=== PATIENT | female | born 1975 | race Caucasian/White ===

== ENCOUNTER 2017-02-20 04:32 | Emergency (ER) | payer MEDICAID ==
[2017-02-20 04:32] VITALS: BMI 26.6
[2017-02-20 04:45] VITALS: BP 117/69; PULSE 82; RESP 17; TEMP 97.7; O2SAT 96
--- NOTE | 2017-02-20 04:59 | ED PDOC ---
Arrival/HPI <Elias Quesada - Last Filed: 02/20/17 06:31> - General Historian: Patient - History of Present Illness Time/Duration: Prior to Arrival Symptom Course: Intermittent Quality: Stabbing <Roderick Georges - Last Filed: 02/20/17 06:35> - General Chief Complaint: Lower Extremity Problem/Injury Time Seen by Provider: 02/20/17 04:32 - History of Present Illness Narrative History of Present Illness (Text): 02/20/17 04:55 41 y/o female with hx rheumatoid arthritis, diabetes, hypothyroidism presenting with complaints of right posterior knee pain. Patient states she has been experiencing intermittent pain for the last 10 days however her pain has significantly worsened tonight. Her pain typically presents at nighttime, often waking her from sleep. She denies any injury to the leg or knee joint. She denies any history of DVT, leg swelling or tenderness. No recent hx of immobility, OCP use or smoking. Pain is worse with flexion of right knee. Patient denies shortness of breath, chest pain, fever, chills. (Roderick Georges) Past Medical History - Provider Review Nursing Documentation Reviewed: Yes - Infectious Disease Hx of Infectious Diseases: None - Tetanus Immunization Tetanus Immunization: Unknown - Cardiac Hx Hypertension: Yes - Pulmonary Hx Respiratory Disorders: Yes Hx Asthma: Yes - Endocrine/Metabolic Hx Diabetes Mellitus Type 1: Yes Hx Hypothyroidism: Yes - Psychiatric Hx Depression: No Hx Emotional Abuse: No Hx Physical Abuse: No Hx Substance Use: No - Surgical History Hx Cholecystectomy: Yes Hx Hysterectomy: Yes Hx Tubal Ligation: Yes (??) - Suicidal Assessment Feels Threatened In Home Enviroment: No <Roderick Georges - Last Filed: 02/20/17 06:35> Family/Social History - Physician Review Nursing Documentation Reviewed: Yes Family/Social History: Unknown Family HX Smoking Status: Never Smoked Hx Alcohol Use: No Hx Substance Use: No Hx Substance Use Treatment: No <Roderick Georges - Last Filed: 02/20/17 06:35> Allergies/Home Meds <Elias Quesada - Last Filed: 02/20/17 06:31> <Roderick Georges - Last Filed: 02/20/17 06:35> Allergies/Adverse Reactions: Allergies No Known Allergies Allergy (Verified 02/05/16 23:00) per patient Home Medications: Home Meds Medication Instructions Recorded Confirmed Glimepiride 2 mg PO BID 09/22/12 02/20/17 Metformin Hydrochloride [Metformin] 500 mg PO DAILY 08/23/13 02/20/17 Levothyroxine Sodium 75 mcg PO DAILY 01/20/15 02/20/17 Amlodipine Besylate/Benazepril 1 cap PO DAILY 02/20/17 02/20/17 [Amlodipine Besylate and Benazepril Hydrochlor] Review of Systems - Physician Review All systems were reviewed & negative as marked: Yes - Review of Systems Respiratory: absent: SOB, Cough Cardiovascular: absent: Chest Pain Musculoskeletal: Other (+ right posterior knee pain ) <Roderick Georges - Last Filed: 02/20/17 06:35> Physical Exam Vital Signs Reviewed: Yes Temperature: Afebrile Blood Pressure: Normal Pulse: Regular Respiratory Rate: Normal Appearance: Positive for: Well-Appearing Pain Distress: Mild Mental Status: Positive for: Alert and Oriented X 3 - Systems Exam Head: Present: Atraumatic, Normocephalic Pupils: Present: PERRL Extroacular Muscles: Present: EOMI Conjunctiva: Present: Normal Neck: Present: Normal Range of Motion Respiratory/Chest: Present: Clear to Auscultation. No: Respiratory Distress, Accessory Muscle Use Cardiovascular: Present: Regular Rate and Rhythm, Normal S1, S2 Abdomen: Present: Normal Bowel Sounds. No: Tenderness, Distention Back: Present: Normal Inspection Upper Extremity: Present: Normal Inspection. No: Cyanosis, Edema Lower Extremity: Present: Normal Inspection, NORMAL PULSES, Neurovascularly Intact. No: Edema, CALF TENDERNESS, Cyanosis, Normal ROM (decreased knee flexion 2/2 pain ), Hernan's Sign, Tenderness, Swelling, Erythema Neurological: Present: GCS=15, CN II-XII Intact, Speech Normal Skin: Present: Warm, Dry, Normal Color. No: Rashes Psychiatric: Present: Alert, Oriented x 3, Normal Insight, Normal Concentration <Roderick Georges - Last Filed: 02/20/17 06:35> Vital Signs Temp Pulse Resp BP Pulse Ox 02/20/17 04:41 97.7 F 82 17 117/69 96 Medical Decision Making <Elias Quesada - Last Filed: 02/20/17 06:31> <Roderick Georges - Last Filed: 02/20/17 06:35> ED Course and Treatment: Impression: Pt seen and evaluated with medical staff coordinator. Pt, whose past medical history includes rheumatoid arthritis, diabetes, and hypothyroidism, presented for intermittent posterior right knee pain for 10 days, worsening tonight. Aware and agree with HPI, clinical findings, plan, and management. Plan: -- XR Right Knee -- US Duplex Lower Extremities -- Reassess and disposition (Elias Quesada) 02/20/17 05:01 41 y/o female with hx rheumatoid arthritis, DM2, hypothyroidism presenting with right posterior knee pain. No injury or trauma reported. Patient with no significant risk factors for DVT. - knee xray - doppler b/l LE - reassess (Roderick Georges) - Lab Interpretations Lab Results: Lab Results 02/20/17 05:02: Urine HCG, Qual Negative - RAD Interpretation Radiology Orders: 02/20/17 04:53 DUPLEX LOWER EXTRM VEIN BILAT [US] Stat 02/20/17 05:02 KNEE RIGHT 2 VIEWS (AP & LAT) [RAD] Stat - PA / [employer] BUSINESS CONSULTANT / Resident Statement / has reviewed & agrees with the documentation as recorded. / has examined the patient and agrees with the treatment plan. <Elias Quesada - Last Filed: 02/20/17 06:31> Disposition/Present on Arrival <Elias Quesada - Last Filed: 02/20/17 06:31> - Present on Arrival Any Indicators Present on Arrival: No History of DVT/PE: No History of Uncontrolled Diabetes: No Urinary Catheter: No History of Decub. Ulcer: No History Surgical Site Infection Following: None - Disposition Have Diagnosis and Disposition been Completed?: Yes Disposition Time: 06:26 Patient Plan: Discharge <Roderick Georges - Last Filed: 02/20/17 06:35> - Disposition Diagnosis: Knee pain, chronic Disposition: HOME/ ROUTINE Patient Problems: Current Active Problems Problem Status Diagnosed Knee pain, chronic Acute Condition: GOOD Discharge Instructions (ExitCare): Knee Pain (ED), Knee Exercises (GEN) Additional Instructions: Please follow up with an Orthopedist for treatment of your knee pain. If pain continues to worsen or changes return to the emergency room. There is no evidence of bone fracture or blood clots to either leg. Referrals: Susy Welsh MD [Primary Care Provider] - Follow up with primary Ed Pulido MD [Staff Provider] - Follow up with primary
--- NOTE | 2017-02-20 11:13 | US ---
HISTORY: Leg pain and swelling. Evaluate for DVT PHYSICIAN(S): Yonatan Acosta MD. TECHNIQUE: Duplex sonography and color-flow Doppler with graded compression were used to evaluate the deep venous systems of both lower extremities. FINDINGS: The visualized deep venous systems of both lower extremities are sonographically normal and compressible. Normal wave forms and augmentation are seen. There is no sonographic evidence for deep venous thrombosis in the visualized segments of both lower extremities. IMPRESSION: No sonographic evidence for deep venous thrombosis in the visualized segments of both lower extremities.
--- NOTE | 2017-02-20 12:21 | RAD ---
PROCEDURE: Right Knee Radiographs. HISTORY: knee pain COMPARISON: None. FINDINGS: BONES: Bone alignment and mineralization are normal. There is no acute fracture or bone destruction. JOINTS: There is moderate tricompartmental degenerative osteoarthrosis with reduced joint spaces, marginal osteophytes and tibial spiking, worse in the medial compartment. JOINT EFFUSION: None. OTHER FINDINGS: None. IMPRESSION: Moderate tricompartmental degenerative osteoarthrosis, worse in the medial compartment.
== END 2017-02-20 07:08 | disposition home or self-care (01) ==
LOC: ED 04:32
DX: M25.561 Pain in right knee (principal); I10 Essential (primary) hypertension; M06.9 Rheumatoid arthritis, unspecified
CPT/HCPCS: 73560; 84703; 93970; 96372; 99283; J1885

== ENCOUNTER 2017-07-14 00:57 | Emergency (ER) | payer MEDICAID ==
[2017-07-14 00:57] VITALS: BMI 26.6
[2017-07-14 01:08] VITALS: BP 125/66; PULSE 89; RESP 18; TEMP 98.3; O2SAT 97
--- NOTE | 2017-07-14 01:21 | ED PDOC ---
Arrival/HPI - General Chief Complaint: Lower Extremity Problem/Injury Time Seen by Provider: 07/14/17 01:05 Historian: Patient - History of Present Illness Narrative History of Present Illness (Text): 07/14/17 01:16 This 41 yo female presents to this ED c/o right ankle pain x 5 hours. Patient stated she twisted her right ankle at a local gym. Patient stated ankle pain was mild, so she told gym staff that she did not need to got to ED. Patient went home, the pain has worsen few hours later. Patient is pointing at medial malleoulus area as the most painful side. Denies posterior ankle pain, knee pain, calf pain, weakness, paresthesias, or hip pain. Denies other complains. Time/Duration: 4-6 hours Symptom Onset: Sudden Symptom Course: Worsening Quality: Aching Context: Other (gym) Past Medical History - Provider Review Nursing Documentation Reviewed: Yes - Infectious Disease Hx of Infectious Diseases: None - Tetanus Immunization Tetanus Immunization: Unknown - Cardiac Hx Hypertension: Yes - Pulmonary Hx Respiratory Disorders: Yes Hx Asthma: Yes - Neurological Hx Neurological Disorder: No - HEENT Hx HEENT Disorder: No - Renal Hx Kidney Stones: No - Endocrine/Metabolic Hx Diabetes Mellitus Type 1: Yes Hx Hypothyroidism: Yes - Hematological/Oncological Hx Blood Disorders: No - Integumentary Hx Dermatological Disorder: No - Musculoskeletal/Rheumatological Hx Musculoskeletal Disorders: No - Gastrointestinal Hx Gastrointestinal Disorders: No - Genitourinary/Gynecological Hx Genitourinary Disorders: No - Psychiatric Hx Psychophysiologic Disorder: No Hx Depression: No Hx Emotional Abuse: No Hx Physical Abuse: No Hx Substance Use: No - Surgical History Hx Cholecystectomy: Yes Hx Hysterectomy: Yes Hx Tubal Ligation: Yes (??) - Suicidal Assessment Feels Threatened In Home Enviroment: No Family/Social History - Physician Review Nursing Documentation Reviewed: Yes Family/Social History: Other (non-contributory) Smoking Status: Never Smoked Hx Alcohol Use: No Hx Substance Use: No Hx Substance Use Treatment: No Allergies/Home Meds Allergies/Adverse Reactions: Allergies No Known Allergies Allergy (Verified 07/14/17 01:01) per patient Home Medications: Home Meds Medication Instructions Recorded Confirmed Glimepiride 2 mg PO BID 09/22/12 02/20/17 Metformin Hydrochloride [Metformin] 500 mg PO DAILY 08/23/13 02/20/17 Levothyroxine Sodium 75 mcg PO DAILY 01/20/15 02/20/17 Amlodipine Besylate/Benazepril 1 cap PO DAILY 02/20/17 02/20/17 [Amlodipine Besylate and Benazepril Hydrochlor] Review of Systems - Review of Systems Constitutional: Normal. absent: Fatigue, Weight Change, Fevers Eyes: Normal ENT: Normal Respiratory: Normal. absent: SOB, Cough Cardiovascular: Normal. absent: Chest Pain, Other Gastrointestinal: Normal. absent: Abdominal Pain, Nausea, Vomiting Genitourinary Female: Normal Musculoskeletal: Other (see hpi) Skin: Normal Neurological: Normal. absent: Headache, Dizziness, Focal Weakness Endocrine: Normal Hemo/Lymphatic: Normal Psychiatric: Normal Physical Exam Vital Signs Temp Pulse Resp BP Pulse Ox 07/14/17 01:02 98.3 F 89 18 125/66 97 Temperature: Afebrile Blood Pressure: Normal Pulse: Regular Respiratory Rate: Normal Appearance: Positive for: Well-Appearing, Non-Toxic, Comfortable Pain Distress: None Mental Status: Positive for: Alert and Oriented X 3 - Systems Exam Head: Present: Atraumatic, Normocephalic Pupils: Present: PERRL Extroacular Muscles: Present: EOMI Conjunctiva: Present: Normal Mouth: Present: Moist Mucous Membranes Upper Extremity: Present: Normal Inspection, Normal ROM Lower Extremity: Present: NORMAL PULSES, Tenderness, Swelling, Neurovascularly Intact, Capillary Refill < 2 s, Other ((+) mild swelling and tender on right lateral malleoulus area. Alvarez test was negative. No calf tenderness. No posterior ankle tenderness). No: Edema, CALF TENDERNESS, Normal ROM, Hernan's Sign, Erythema, Deformity, Temperature Abnormalties Neurological: Present: GCS=15, CN II-XII Intact, Speech Normal, Motor Func Grossly Intact, Normal Sensory Function, Normal Cerebellar Funct, Memory Normal Skin: Present: Warm, Dry, Normal Color. No: Rashes Psychiatric: Present: Alert, Oriented x 3 Medical Decision Making ED Course and Treatment: 07/14/17 02:06 Re-evaluation. Patient feels better. Discussed results and plan with patient who expresses understanding. All questions answered and there is agreement with the plan to discharge home with instructions. Patient stable for discharge. Return if symptoms persist or worsen Patient was recommended to keep ankle elevated, ice, jarvis bandage, air cast, crutches for at least 5 days. To f/u fastener technologist if pain persist. To remove jarvis bandage and air cast at bedtime. Return to emergency if symptoms worsen. Re-evaluation Time: 02:06 Reassessment Condition: Re-examined, Improved - RAD Interpretation Narrative RAD Interpretations (Text): 07/14/17 02:06 Ankle x-rays: No fx Tib Fib x-rays: no fx Radiology Orders: 07/14/17 01:15 ANKLE RIGHT 3 VIEWS ROUTINE [RAD] Stat TIBIA FIBULA RIGHT [RAD] Stat - Medication Orders Current Medication Orders: Discontinued Medications Acetaminophen (Tylenol 325mg Tab) 650 mg PO STAT STA Stop: 07/14/17 01:17 Last Admin: 07/14/17 01:31 Dose: 650 mg Acetaminophen (Tylenol 325mg Tab) Confirm Administered Dose 650 mg .ROUTE .STK- MED ONE Stop: 07/14/17 01:28 Disposition/Present on Arrival - Present on Arrival Any Indicators Present on Arrival: No History of DVT/PE: No History of Uncontrolled Diabetes: No Urinary Catheter: No History of Decub. Ulcer: No History Surgical Site Infection Following: None - Disposition Have Diagnosis and Disposition been Completed?: Yes Diagnosis: Ankle pain Disposition: HOME/ ROUTINE Disposition Time: 02:10 Patient Plan: Discharge Condition: GOOD Discharge Instructions (ExitCare): Ankle Sprain (ED), Crutch Instructions (ED) Additional Instructions: Call private doctor for follow up visit in 1-2 days. Keep ankle elevated, ice , rest, crutches, air cast. Remove air cast at bedtime. Return to emergency if symptoms worsen. Call fastener technologist if pain persist or worsen Prescriptions: Acetaminophen with Codeine [Tylenol with Codeine #3 Tablet] 1 each PO Q6H PRN # 10 tablet PRN Reason: Pain, Severe (8-10) Referrals: Susy Welsh MD [Primary Care Provider] - Follow up with primary Mikaela Corado DPM [Staff Provider] - Follow up with primary Forms: [employer] ([place]ux[place]ish), WORK NOTE
--- NOTE | 2017-07-14 07:24 | RAD ---
PROCEDURE: Right Ankle Radiographs. HISTORY: pain s/p trauma COMPARISON: None FINDINGS: BONES: Normal. No fracture. JOINTS: Normal. No osteoarthritis. Ankle mortise maintained. Talar dome intact SOFT TISSUES: Normal. OTHER FINDINGS: None. IMPRESSION: Normal right ankle radiographs.
--- NOTE | 2017-07-14 07:24 | RAD ---
PROCEDURE: Radiographs of the right tibia and fibula. HISTORY: pain COMPARISON: None available. TECHNIQUE: Frontal and lateral views obtained. FINDINGS: BONES: No fracture or destructive lesion. JOINT SPACES: Unremarkable. OTHER FINDINGS: None. IMPRESSION: Unremarkable radiographs of the right tibia and fibula.
== END 2017-07-14 02:35 | disposition home or self-care (01) ==
LOC: ED 00:57
DX: M25.571 Pain in right ankle and joints of right foot (principal)

== ENCOUNTER 2017-12-24 21:11 | Emergency (ER) | payer MEDICAID ==
[2017-12-24 21:12] VITALS: BMI 26.6
[2017-12-24 21:38] VITALS: TEMP 98.1; O2SAT 99
--- NOTE | 2017-12-24 21:56 | ED PDOC ---
Arrival/HPI - General Chief Complaint: Finger,Hand,&Wrist Time Seen by Provider: 12/24/17 21:40 Historian: Patient - History of Present Illness Narrative History of Present Illness (Text): 12/24/17 21:40 42 y/o female, pmh including htn/dm/hypothyroidism/rheumatoid arthiritis, nkda, c/o Lt. wrist pain started yesterday with no fall or trauma. Aching pain, painful to move, no pain medication taken at home, feels like this is the flared up of her rheumatoid arthiritis, no numbness or tingling, no palpitation , no rash, no night sweat, no other medical or psychological complaints. Past Medical History - Provider Review Nursing Documentation Reviewed: Yes - Infectious Disease Hx of Infectious Diseases: None - Tetanus Immunization Tetanus Immunization: Unknown - Cardiac Hx Hypertension: Yes - Pulmonary Hx Respiratory Disorders: Yes Hx Asthma: Yes - Neurological Hx Neurological Disorder: No - HEENT Hx HEENT Disorder: No - Renal Hx Kidney Stones: No - Endocrine/Metabolic Hx Diabetes Mellitus Type 1: Yes Hx Hypothyroidism: Yes - Hematological/Oncological Hx Blood Disorders: No - Integumentary Hx Dermatological Disorder: No - Musculoskeletal/Rheumatological Hx Musculoskeletal Disorders: No - Gastrointestinal Hx Gastrointestinal Disorders: No - Genitourinary/Gynecological Hx Genitourinary Disorders: No - Psychiatric Hx Psychophysiologic Disorder: No Hx Depression: No Hx Emotional Abuse: No Hx Physical Abuse: No Hx Substance Use: No - Surgical History Hx Cholecystectomy: Yes Hx Hysterectomy: Yes Hx Tubal Ligation: Yes (??) - Suicidal Assessment Feels Threatened In Home Enviroment: No Family/Social History - Physician Review Nursing Documentation Reviewed: Yes Family/Social History: Unknown Family HX Smoking Status: Never Smoked Hx Alcohol Use: No Hx Substance Use: No Hx Substance Use Treatment: No Allergies/Home Meds Allergies/Adverse Reactions: Allergies No Known Allergies Allergy (Verified 07/14/17 01:01) per patient Home Medications: Home Meds Medication Instructions Recorded Confirmed Glimepiride 2 mg PO BID 09/22/12 02/20/17 Metformin Hydrochloride [Metformin] 500 mg PO DAILY 08/23/13 02/20/17 Levothyroxine Sodium 75 mcg PO DAILY 01/20/15 02/20/17 Amlodipine Besylate/Benazepril 1 cap PO DAILY 02/20/17 02/20/17 [Amlodipine Besylate and Benazepril Hydrochlor] Review of Systems - Review of Systems Constitutional: absent: Fatigue, Fevers Eyes: absent: Vision Changes ENT: absent: Hearing Changes Respiratory: absent: SOB, Cough Cardiovascular: absent: Chest Pain, Syncope Gastrointestinal: absent: Abdominal Pain, Nausea, Vomiting Musculoskeletal: Arthralgias, Joint Swelling. absent: Back Pain, Neck Pain, Myalgias Skin: absent: Rash, Pruritis Psychiatric: absent: Anxiety, Depression Physical Exam Vital Signs Reviewed: Yes Vital Signs Temp Pulse Resp BP Pulse Ox 12/24/17 23:12 78 16 128/78 99 12/24/17 21:34 98.1 F 83 15 132/85 99 Temperature: Afebrile Blood Pressure: Normal Pulse: Regular Respiratory Rate: Normal Appearance: Positive for: Well-Appearing, Non-Toxic Pain Distress: Moderate Mental Status: Positive for: Alert and Oriented X 3 - Systems Exam Head: Present: Atraumatic, Normocephalic Pupils: Present: PERRL Extroacular Muscles: Present: EOMI Conjunctiva: Present: Normal Mouth: Present: Moist Mucous Membranes Neck: Present: Normal Range of Motion Respiratory/Chest: Present: Clear to Auscultation, Good Air Exchange. No: Respiratory Distress, Accessory Muscle Use Cardiovascular: Present: Regular Rate and Rhythm, Normal S1, S2. No: Murmurs Abdomen: Present: Normal Bowel Sounds. No: Tenderness, Distention, Peritoneal Signs Back: Present: Normal Inspection Upper Extremity: Present: Normal Inspection, Normal ROM, Neurovascularly Intact , Capillary Refill < 2s, Norm 2-Pt Discrimination, Other (Lt. wrist: +ttp on lt. wrist, no scaphoid tenderness, no erythematous, no cellulitis or streaking, no ulcers, FROM without limitation, sensation intact, motor 5/5, +radial pulse, capillary refill< 2 seconds, neurovascular intact. ). No: Cyanosis, Edema, Erythema, Deformity Lower Extremity: Present: Normal Inspection. No: Edema Neurological: Present: GCS=15, CN II-XII Intact, Speech Normal Skin: Present: Warm, Dry, Normal Color. No: Rashes Psychiatric: Present: Alert, Oriented x 3, Normal Insight, Normal Concentration Medical Decision Making ED Course and Treatment: 12/24/17 22:09 -labs/uric acid -Lt. wrist xray -LUE venuous doppler -IV toradol/decadron 12/24/17 23:38 -Urine hcg negative -LUE venuous doppler: as per preliminary report, no acute DVT -Lt. wrist xray: no acute fracture or dislocation -Labs are non-significant -Pt. feels much better, will discharge home. -Discharge home with indomethacin, jarvis wrap, follow up with your own pmd and orthopedic within 2 days, return to the ER for any new or worsening signs or symptoms. - Lab Interpretations Lab Results: 12/24/17 22:25 12/24/17 22:25 Lab Results 12/24/17 22:25: Sodium 135, Potassium 3.6, Chloride 100, Carbon Dioxide 24, Anion Gap 15, BUN 21, Creatinine 0.6 L, Est GFR ( Amer) > 60, Est GFR ( Non-Af Amer) > 60, Random Glucose 268 H, Uric Acid 3.3, Calcium 8.9, Total Bilirubin 0.2, AST 16, ALT 29, Alkaline Phosphatase 52, Total Protein 7.1, Albumin 3.9, Globulin 3.2, Albumin/Globulin Ratio 1.2 12/24/17 22:25: WBC 6.1, RBC 4.56, Hgb 10.4 L, Hct 32.6 L, MCV 71.5 L, MCH 22.8 L, MCHC 31.9, RDW 14.0, Plt Count 280, MPV 10.0, Gran % 41.8 L, Lymph % (Auto) 49.6 H, [place] % (Auto) 6.4 H, Eos % (Auto) 2.0, Baso % (Auto) 0.2, Gran # 2.56, Lymph # 3.0, [place] # 0.4, Eos # 0.1, Baso # 0.01 - RAD Interpretation Radiology Orders: 12/24/17 22:00 WRIST, LEFT 3 VIEWS [RAD] Stat DUPLEX UPPER EXTRM VEIN LEFT [US] Stat LUE venuous doppler: as per preliminary report, no acute DVT Lt. wrist xray: no acute fracture or dislocation Call Center Associate: Radiologist - Medication Orders Current Medication Orders: Discontinued Medications Dexamethasone (Decadron Inj) 8 mg IVP STAT STA Stop: 12/24/17 22:01 Last Admin: 12/24/17 22:29 Dose: 8 mg IVP Administration Document 12/24/17 22:29 JO (Rec: 12/24/17 22:29 [id number] Charges for Administration # of IVP Administrations 1 Ketorolac Tromethamine (Toradol) 30 mg IVP STAT STA Stop: 12/24/17 22:01 Last Admin: 12/24/17 22:29 Dose: 30 mg MAR Pain Assessment Document 12/24/17 22:29 JO (Rec: 12/24/17 22:29 [id number] Pain Reassessment Is this a pain reassessment? No Sleep Is patient sleeping during reassessment? No Presence of Pain Presence of Pain Yes Pain Scale Used Pain Scale Used Numeric Location Left, Right or Bilateral Left Pain Location Body Site Wrist IVP Administration Document 12/24/17 22:29 JO (Rec: 12/24/17 22:29 [place] [id number]) Charges for Administration # of IVP Administrations 1 - PA / HOG HANDLER / Resident Statement MD/DO has reviewed & agrees with the documentation as recorded. Disposition/Present on Arrival - Present on Arrival Any Indicators Present on Arrival: No History of DVT/PE: No History of Uncontrolled Diabetes: No Urinary Catheter: No History of Decub. Ulcer: No History Surgical Site Infection Following: None - Disposition Have Diagnosis and Disposition been Completed?: Yes Diagnosis: Arthritis, Tendinitis Disposition: HOME/ ROUTINE Disposition Time: 22:09 Patient Plan: Discharge Condition: IMPROVED Additional Instructions: -Discharge home with indomethacin, jarvis wrap, follow up with your own pmd and orthopedic within 2 days, return to the ER for any new or worsening signs or symptoms. Prescriptions: Indomethacin [Indocin] 50 mg PO TID PRN #30 cap PRN Reason: Other Referrals: PCP,NO [Primary Care Provider] - Follow up with primary Ed Pulido MD [Staff Provider] - Follow up with primary [facility] [Outside] - Follow up with primary Forms: WORK NOTE
[2017-12-24] MEDS ORDERED: Dexamethasone 4 mg/1 ml IVP STA (22:00)
[2017-12-24 22:40] LABS: BASO # 0.01 K/mm3 (0.0-2.0); BASO % 0.2 % (0.0-3.0); EOS # 0.1 (0.0-0.7); GRAN # 2.56 (1.4-6.5); GRAN % 41.8 % (50.0-68.0); HEMOGLOBIN 10.4 g/dL (12.0-16.0); LYMPH % 49.6 % (22.0-35.0); MEAN CELL VOLUME 71.5 fl (80.0-105.0); MEAN CORPUSCULAR HEMOGLOBIN 22.8 pg (25.0-35.0); MEAN CORPUSCULAR HGB CONC 31.9 g/dl (31.0-37.0); MONO # 0.4 (0.1-0.6); MONO % 6.4 % (1.0-6.0); RBC 4.56 10^6/uL (3.5-6.1); WHITE BLOOD COUNT 6.1 10^3/ul (4.5-11.0)
[2017-12-24 22:46] LABS: ALB/GLOB RATIO 1.2 (1.1-1.8); ALBUMIN 3.9 g/dL (3.0-4.8); ALT/SGPT 29 U/L (7-56); AST/SGOT 16 U/L (14-36); BLOOD UREA NITROGEN 21 mg/dL (7-21); CALCIUM 8.9 mg/dL (8.4-10.5); GFR AFRICAN-AMERICAN > 60; GFR NON-AFRICAN AMERICAN > 60; URIC ACID 3.3 mg/dL (2.5-6.2)
[2017-12-25 03:30] VITALS: BP 128/78; PULSE 78; RESP 16
--- NOTE | 2017-12-25 10:28 | RAD ---
PROCEDURE: Left Wrist Radiographs. HISTORY: Left wrist pain x 2 days COMPARISON: None. FINDINGS: BONES: Bone alignment and mineralization are normal. There is no acute displaced fracture or bone destruction. JOINTS: The proximal and distal carpal rows are maintained. No dislocation. SOFT TISSUES: Normal. OTHER FINDINGS: None. IMPRESSION: No acute fracture or dislocation.
--- NOTE | 2017-12-26 08:49 | US ---
PROCEDURE: Left upper extremity venous ultrasound HISTORY: Arm pain and swelling. Evaluate for deep venous thrombosis. PHYSICIAN(S): Yonatan Acosta MD. FINDINGS: The visualized leftinternal jugular vein is sonographically normal and compressible. No evidence of obstruction or thrombus is seen. The visualized segments of the left subclavian vein are patent with normal waveforms. No sonographic evidence of obstruction or thrombosis is seen. The visualized deep venous system of the proximal leftupper extremity is sonographically normal and compressible. IMPRESSION: 1. No sonographic evidence for deep venous thrombosis in the visualized segments of the left upper extremity.
== END 2017-12-24 23:50 | disposition home or self-care (01) ==
LOC: ED 21:11
DX: M77.8 Other enthesopathies, not elsewhere classified (principal); M13.832 Other specified arthritis, left wrist; I10 Essential (primary) hypertension
CPT/HCPCS: 73110; 80053; 84550; 85025; 93971; 96374; 96375; 99284; J1100; J1885

== ENCOUNTER 2018-03-15 13:28 | Emergency (ER) | payer MEDICAID ==
[2018-03-15 13:28] VITALS: BMI 26.6
[2018-03-15 13:55] VITALS: TEMP 98.6
--- NOTE | 2018-03-15 14:46 | ED PDOC ---
Arrival/HPI - General Chief Complaint: Abnormal Skin Integrity Time Seen by Provider: 03/15/18 14:29 Historian: Patient - History of Present Illness Narrative History of Present Illness (Text): 03/15/18 14:43 This 42 yo female with pmh Diabetes, hypothyroidism, Hypertension, presents to this emergency department complaining of left flank pain since last night. Patient stated pain is sharp, and intermittent, radiating to her left groin. Patient denies urinary symptoms, fever, vaginal discharge, n/v/d, dizziness, or abnormal gait. Patient noted [place] [facility] [place]. Patient stated bruises on her right arm after IV insertion. Denies pus or cellulitis. Time/Duration: Other (see hpi) Quality: Other (sharp) Context: Home Past Medical History - Provider Review Nursing Documentation Reviewed: Yes - Infectious Disease Hx of Infectious Diseases: None - Tetanus Immunization Tetanus Immunization: Unknown - Reproductive Menopause: No - Cardiac Hx Hypertension: Yes - Pulmonary Hx Respiratory Disorders: Yes Hx Asthma: Yes - Neurological Hx Neurological Disorder: No - HEENT Hx HEENT Disorder: No - Renal Hx Kidney Stones: No - Endocrine/Metabolic Hx Diabetes Mellitus Type 1: Yes Hx Hypothyroidism: Yes - Hematological/Oncological Hx Blood Disorders: No - Integumentary Hx Dermatological Disorder: No - Musculoskeletal/Rheumatological Hx Musculoskeletal Disorders: No - Gastrointestinal Hx Gastrointestinal Disorders: No - Genitourinary/Gynecological Hx Genitourinary Disorders: No - Psychiatric Hx Psychophysiologic Disorder: No Hx Depression: No Hx Emotional Abuse: No Hx Physical Abuse: No Hx Substance Use: No - Surgical History Hx Cholecystectomy: Yes Hx Hysterectomy: Yes Hx Tubal Ligation: Yes (??) - Suicidal Assessment Feels Threatened In Home Enviroment: No Family/Social History - Physician Review Nursing Documentation Reviewed: Yes Family/Social History: Other (noncontributory) Smoking Status: Never Smoked Hx Alcohol Use: No Hx Substance Use: No Hx Substance Use Treatment: No Allergies/Home Meds Allergies/Adverse Reactions: Allergies No Known Allergies Allergy (Verified 07/14/17 01:01) per patient Home Medications: Home Meds Medication Instructions Recorded Confirmed Glimepiride 2 mg PO BID 09/22/12 02/20/17 Metformin Hydrochloride [Metformin] 500 mg PO DAILY 08/23/13 02/20/17 Levothyroxine Sodium 75 mcg PO DAILY 01/20/15 02/20/17 Amlodipine Besylate/Benazepril 1 cap PO DAILY 02/20/17 02/20/17 [Amlodipine Besylate and Benazepril Hydrochlor] Review of Systems - Review of Systems Constitutional: Normal. absent: Fatigue, Weight Change, Fevers Eyes: Normal ENT: Normal Respiratory: Normal. absent: SOB, Cough Cardiovascular: Normal. absent: Chest Pain, Palpitations Gastrointestinal: Other (left flank pain). absent: Nausea, Vomiting Genitourinary Female: Normal. absent: Dysuria, Frequency, Hematuria, Vaginal Bleeding, Vaginal Discharge Musculoskeletal: Normal. absent: Back Pain Skin: Other (right arm brusing) Neurological: Normal. absent: Headache, Dizziness, Focal Weakness, Gait Changes , Speech Changes, Facial Droop, Disequilibrium, Seizure Endocrine: Normal Hemo/Lymphatic: Normal Psychiatric: Normal Physical Exam Vital Signs Temp Pulse Resp BP Pulse Ox 03/15/18 15:26 89 18 121/75 98 03/15/18 13:50 98.6 F 94 H 20 119/80 99 Temperature: Afebrile Blood Pressure: Normal Pulse: Regular Respiratory Rate: Normal Appearance: Positive for: Well-Appearing, Non-Toxic, Comfortable Pain Distress: None Mental Status: Positive for: Alert and Oriented X 3 - Systems Exam Head: Present: Atraumatic, Normocephalic Pupils: Present: PERRL Extroacular Muscles: Present: EOMI Conjunctiva: Present: Normal Mouth: Present: Moist Mucous Membranes Neck: Present: Normal Range of Motion Respiratory/Chest: Present: Clear to Auscultation, Good Air Exchange. No: Respiratory Distress, Accessory Muscle Use Cardiovascular: Present: Regular Rate and Rhythm, Normal S1, S2. No: Murmurs Abdomen: No: Tenderness, Distention, Peritoneal Signs, Rebound, Guarding Back: Present: Normal Inspection. No: CVA Tenderness, Midline Tenderness, Paraspinal Tenderness, Pain with Leg Raise Upper Extremity: Present: Normal ROM, NORMAL PULSES, Neurovascularly Intact, Capillary Refill < 2s, Other ((+) 4 cm healing ecchymosis on right antecubital area from IV insertion. No cellulitis or abscess. No streaking erythema. No compartment syndrome.). No: Cyanosis, Edema, Tenderness, Swelling, Erythema Lower Extremity: Present: Normal Inspection, Normal ROM. No: Edema Neurological: Present: GCS=15, CN II-XII Intact, Speech Normal, Motor Func Grossly Intact, Normal Sensory Function, Normal Cerebellar Funct, Gait Normal Skin: Present: Warm, Dry, Normal Color. No: Rashes Psychiatric: Present: Alert, Oriented x 3, Normal Insight, Normal Concentration Medical Decision Making ED Course and Treatment: 03/15/18 14:47 -labs -ct abdom./pelvis -ua/hcg 03/15/18 15:05 Patient refused blood test. She stated she had [place] [facility] [place]. 03/15/18 16:50 Re-evaluation. Patient feels better. Discussed results and plan with patient who expresses understanding. All questions answered and there is agreement with the plan to discharge home with instructions. Patient stable for discharge. Return if symptoms persist or worsen. Re-evaluation Time: 16:50 Reassessment Condition: Re-examined, Improved - Lab Interpretations Lab Results: Lab Results 03/15/18 15:18: Urine Color Yellow, Urine Appearance Clear, Urine pH 6.0, Ur Specific Hosmer 1.025, Urine Protein Negative, Urine Glucose (UA) 500 H, Urine Ketones Negative, Urine Blood Negative, Urine Nitrate Negative, Urine Bilirubin Negative, Urine Urobilinogen 0.2, Ur Leukocyte Esterase Trace H, Urine RBC 0 - 2 , Urine WBC 0 - 2, Ur Epithelial Cells 4 - 5, Urine Bacteria Few, Urine HCG, Qual Negative I have reviewed the lab results: Yes Interpretation: No clinic. lab abnormalty - RAD Interpretation Narrative RAD Interpretations (Text): 03/15/18 16:50 PROCEDURE: CT Abdomen and Pelvis without intravenous contrast HISTORY: left flank pain COMPARISON: 01/03/2016 CT abdomen and pelvis TECHNIQUE: Unenhanced study. Neither oral nor intravenous contrast administered. Total exam DLP = 816.28 mGy-cm. This CT exam was performed using one or more of the following dose reduction techniques: Automated exposure control, adjustment of the mA and/or kV according to patient size, and/or use of iterative reconstruction technique. FINDINGS: LOWER THORAX: Peripheral pleural-based 5 mm pulmonary nodule right middle lobe. Stable finding compared to prior studies. Peripheral 6 mm pulmonary nodule lateral segment left lower lobe stable findings LIVER: Unremarkable. No gross lesion or ductal dilatation. GALLBLADDER AND BILE DUCTS: Status post cholecystectomy. No abnormality is seen in the gallbladder fossa. PANCREAS: Unremarkable. No gross lesion or ductal dilatation. SPLEEN: Unremarkable. ADRENALS: Unremarkable. No mass. KIDNEYS AND URETERS: Unremarkable. No hydronephrosis. No solid mass. VASCULATURE: Unremarkable. No aortic aneurysm. BOWEL: Constipation without fecal impaction or obstruction. APPENDIX: No abnormalities to suggest acute appendicitis. No right lower quadrant inflammatory processes identified. PERITONEUM: Unremarkable. No free fluid. No free air. LYMPH NODES: Unremarkable. No enlarged lymph nodes. BLADDER: Unremarkable. REPRODUCTIVE: Unremarkable. BONES: No acute fracture. OTHER FINDINGS: None. IMPRESSION: No significant or acute findings to account for/ related to the clinical presentation. Additional benign and/or incidental findings described above. No significant interval change compared to the prior examination(s). Radiology Orders: 03/15/18 14:43 ABD & PELVIS W/O PO OR IV CONT [CT] Stat Disposition/Present on Arrival - Present on Arrival Any Indicators Present on Arrival: No History of DVT/PE: No History of Uncontrolled Diabetes: No Urinary Catheter: No History of Decub. Ulcer: No History Surgical Site Infection Following: None - Disposition Have Diagnosis and Disposition been Completed?: Yes Diagnosis: Constipation, Nonspecific abdominal pain, Lung nodule Disposition: HOME/ ROUTINE Disposition Time: 16:53 Patient Plan: Discharge Condition: GOOD Additional Instructions: Call private doctor for follow up visit in 1-2 days. Take medication as instructed. Make sure to review urine culture in 2-3 days with your doctor. Take miralx daily to prevent constipation. Return to emergency if symptoms worsen. Prescriptions: Cephalexin [Keflex] 500 mg PO BID #14 capsule Polyethylene Glycol 3350 [Miralax] 17 gm PO DAILY #1 packet Referrals: Susy Welsh MD [Primary Care Provider] - Follow up with primary Forms: [employer] (Uzbek), WORK NOTE
[2018-03-15 15:32] LABS: URINE BILIRUBIN NEGATIVE (NEGATIVE); URINE BLOOD NEGATIVE (NEGATIVE); URINE GLUCOSE (UA) 500 mg/dL (NEGATIVE); URINE LEUKOCYTE ESTERASE TRACE Leu/uL (NEGATIVE); URINE PROTEIN NEGATIVE mg/dL (<30 mg/dL); URINE UROBILINOGEN 0.2 E.U./dL (<1 E.U./dL)
[2018-03-15 15:33] LABS: URINE APPEARANCE CLEAR (CLEAR); URINE COLOR YELLOW (YELLOW)
[2018-03-15 15:35] LABS: HCG,QUALITATIVE URINE NEGATIVE (NEGATIVE)
[2018-03-15 15:39] LABS: URINE BACTERIA FEW (NEG); URINE RBC 0 - 2 /hpf (0-2); URINE WBC 0 - 2 /hpf (0-6)
--- NOTE | 2018-03-15 16:32 | CT ---
PROCEDURE: CT Abdomen and Pelvis without intravenous contrast HISTORY: left flank pain COMPARISON: 01/03/2016 CT abdomen and pelvis TECHNIQUE: Unenhanced study. Neither oral nor intravenous contrast administered. Total exam DLP = 816.28 mGy-cm. This CT exam was performed using one or more of the following dose reduction techniques: Automated exposure control, adjustment of the mA and/or kV according to patient size, and/or use of iterative reconstruction technique. FINDINGS: LOWER THORAX: Peripheral pleural-based 5 mm pulmonary nodule right middle lobe. Stable finding compared to prior studies. Peripheral 6 mm pulmonary nodule lateral segment left lower lobe stable findings LIVER: Unremarkable. No gross lesion or ductal dilatation. GALLBLADDER AND BILE DUCTS: Status post cholecystectomy. No abnormality is seen in the gallbladder fossa. PANCREAS: Unremarkable. No gross lesion or ductal dilatation. SPLEEN: Unremarkable. ADRENALS: Unremarkable. No mass. KIDNEYS AND URETERS: Unremarkable. No hydronephrosis. No solid mass. VASCULATURE: Unremarkable. No aortic aneurysm. BOWEL: Constipation without fecal impaction or obstruction. APPENDIX: No abnormalities to suggest acute appendicitis. No right lower quadrant inflammatory processes identified. PERITONEUM: Unremarkable. No free fluid. No free air. LYMPH NODES: Unremarkable. No enlarged lymph nodes. BLADDER: Unremarkable. REPRODUCTIVE: Unremarkable. BONES: No acute fracture. OTHER FINDINGS: None. IMPRESSION: No significant or acute findings to account for/ related to the clinical presentation. Additional benign and/or incidental findings described above. No significant interval change compared to the prior examination(s).
[2018-03-15 17:15] VITALS: BP 124/80; PULSE 78; RESP 17; O2SAT 99
== END 2018-03-15 17:13 | disposition home or self-care (01) ==
LOC: ED 13:28
DX: K59.00 Constipation, unspecified (principal); R91.1 Solitary pulmonary nodule; R10.9 Unspecified abdominal pain; E11.9 Type 2 diabetes mellitus without complications; I10 Essential (primary) hypertension; E03.9 Hypothyroidism, unspecified

== ENCOUNTER 2018-04-18 14:59 | Emergency (ER) | payer MEDICAID ==
[2018-04-18 15:15] VITALS: BMI 30.9
[2018-04-18 15:21] VITALS: RESP 18
[2018-04-18] MEDS ORDERED: Sodium Chloride 0.9% 500 ML IV STA (15:53)
--- NOTE | 2018-04-18 16:11 | ED PDOC ---
Arrival/HPI - General Chief Complaint: High Blood Sugar Time Seen by Provider: 04/18/18 15:49 Historian: Patient - History of Present Illness Narrative History of Present Illness (Text): 04/18/18 1555 pt p/w + sudden onset of right arm cramping/severe pain/lower leg numbness/ tingling, and + sob/dizziness after giving herself insulin injection ~ 45min prior to Emergency department arrival; pt states pain is severe, pt states no fever/chills/sweats, no cp, + intermittent sob over the last few days, no palpitations, no abd pain, no n/v, no fall/trauma/sick contact, no travel administrator denied incontinence pt states her sugar level has been unbalanced/high over the last few weeks prompting patient to visit [facility] [place] on multiple occasions pt denied slurr speech, no chacon, no vision changes, no arm/leg weakness pt is here for further eval pt's without other complaints pt denied severe anxiety, pt denied SI/HI, pt denied hallucinations PCP: Dr Gunter pt is right hand dominate Past medical history: cardiomeagly, thyroid disorder, asthma/diabetes, mood disorder Time/Duration: Prior to Arrival Symptom Onset: Sudden Symptom Course: Unchanged Quality: Tightness Severity Level: Severe Activities at Onset: Rest Context: Home Past Medical History - Provider Review Nursing Documentation Reviewed: Yes - Travel History Have you recently traveled outside [place] w/in the past 3 mons?: No - Past History Past History: No Previous - Infectious Disease Hx of Infectious Diseases: None - Tetanus Immunization Tetanus Immunization: Unknown - Reproductive Menopause: No Currently : Unknown - Cardiac Hx Hypertension: Yes - Pulmonary Hx Respiratory Disorders: Yes Hx Asthma: Yes - Neurological Hx Neurological Disorder: No - HEENT Hx HEENT Disorder: No - Renal Hx Kidney Stones: No - Endocrine/Metabolic Hx Diabetes Mellitus Type 1: Yes Hx Hypothyroidism: Yes - Hematological/Oncological Hx Blood Disorders: No - Integumentary Hx Dermatological Disorder: No - Musculoskeletal/Rheumatological Hx Musculoskeletal Disorders: No - Gastrointestinal Hx Gastrointestinal Disorders: No - Genitourinary/Gynecological Hx Genitourinary Disorders: No - Psychiatric Hx Psychophysiologic Disorder: No Hx Depression: No Hx Emotional Abuse: No Hx Physical Abuse: No Hx Substance Use: No - Surgical History Hx Cholecystectomy: Yes Hx Hysterectomy: Yes Hx Tubal Ligation: Yes (??) - Suicidal Assessment Feels Threatened In Home Enviroment: No Family/Social History - Physician Review Nursing Documentation Reviewed: Yes Family/Social History: No Known Family HX Smoking Status: Never Smoked Hx Alcohol Use: No Hx Substance Use: No Hx Substance Use Treatment: No Allergies/Home Meds Allergies/Adverse Reactions: Allergies No Known Allergies Allergy (Verified 04/18/18 15:15) per patient Home Medications: Home Meds Medication Instructions Recorded Confirmed Glimepiride 2 mg PO BID 09/22/12 02/20/17 Metformin Hydrochloride [Metformin] 500 mg PO DAILY 08/23/13 02/20/17 Levothyroxine Sodium 75 mcg PO DAILY 01/20/15 02/20/17 Amlodipine Besylate/Benazepril 1 cap PO DAILY 02/20/17 02/20/17 [Amlodipine Besylate and Benazepril Hydrochlor] Review of Systems - Review of Systems Constitutional: Normal Eyes: Normal ENT: Normal Respiratory: SOB, Wheezing. absent: Cough Cardiovascular: Normal. absent: Chest Pain, Palpitations Gastrointestinal: Normal. absent: Abdominal Pain, Nausea, Vomiting Genitourinary Female: Normal Musculoskeletal: Normal Skin: Normal Neurological: Dizziness, Other (arm tightness/cramps, b/l leg numbness/tingling) Endocrine: Normal Hemo/Lymphatic: Normal Psychiatric: Normal Physical Exam - Physical Exam Narrative Physical Exam (Text): 04/18/18 16:26 General: alert/awake, GCS = 15, oriented x 3, resting in bed, uncomfortable, cooperative, interactive; moderate distress due to right arm/shoulder pain Head: NC/AT EYE: PERRLA, EOMI, sclera anicteric, no nystagmus, no photophobia; visual field intact b/l Facial: WNL Oral: uvula/tongue are midline, no exudate/lesions, no drooling/stridor, no dysphonia; intact dentitions; moist oral mucosa NECK: intact ROM, no midline tenderness, no nuchal rigidity, no meningeal signs ; no step off Chest: CTA b/l, no w/r/r; no tachypenia, no accessory muscle use noted Cardiac: +S1, +S2, no m/r/r, no tachycardia Abdominal: +BS, soft/nd/nt, well nourished/obese patient; no masses/rebound/ guarding/rigidity; no daniels's sign, no mcburney's point tenderness Extremities: intact ROM to all limbs except right shoulder pt is holding her right arm in a flexed/internally rotated position, strength 5/5 grossly intact in all limbs, neurovasc intact b/l; + ambulatory; reflex +2/2; no gross deformities noted BACK: no step off, no midline tenderness, NO crepitus, no gross deformities noted; Intact ROM SKIN: cap refill < 1 sec, no ulcerations, no petechiae, no rashes NEURO: CNII-XII WNL, no facial asymmetries, no slurr speech, oriented x 3 NIH stroke scale ~ 0 Psych: normal insight, normal affect; follows command with ease Vital Signs Reviewed: Yes Vital Signs Temp Pulse Resp BP Pulse Ox 04/18/18 15:19 98.0 F 70 18 165/90 H 98 Temperature: Afebrile Blood Pressure: Hypertensive Pulse: Regular Respiratory Rate: Normal Appearance: Positive for: Well-Appearing, Non-Toxic, Uncomfortable, Other (alert /awake, GCS = 15, oriented x 3, cooperative, follows command with ease, moderate distress due to arm pain, resting in bed) Pain Distress: Moderate Mental Status: Positive for: Alert and Oriented X 3 - Systems Exam Head: Present: Atraumatic, Normocephalic Medical Decision Making ED Course and Treatment: 04/18/18 16:00 Impression: right arm pain, numbness/tingling i have consider all the differential diagnosis regarding pt's chief medical complaints/clinical findings, including but are not limited to: right arm pain, numbness/tingling, acute onset - symptoms inconsistent with CVA, likely carpal pedal symptom; r/o diabetic caused disorder A/P: right arm pain, numbness/tingling - labs - iv - xray - ct - ua - supportive care - observe/reevaluation 1610 pt was re-evaluated and pt is now feeling normal, NO more right arm pain/cramps/ tightness, pt denied numbness/tingling currently; pt is feeling improved NIH stroke scale ~ 0 1750 pt remained at baseline pt's daughter is at bedside pt is awaiting Ct/xray results 1900 pt remained comfortable with mild right forearm pain complaints pt remained able to move all limbs with ease NIH stroke scale ~ 0 pt/family are made aware of her medical results pt is encouraged fluids pt is encouraged keeping a GLUC diary pt will f/u as directed pt will be discharged home Re-evaluation Time: 16:15 Reassessment Condition: Improved - Lab Interpretations Lab Results: 04/18/18 17:09 04/18/18 17:09 Lab Results 04/18/18 17:29: Urine Opiates Screen Negative, Urine Methadone Screen Negative, Ur Barbiturates Screen Negative, Ur Phencyclidine Scrn Negative, Ur Amphetamines Screen Negative, U Benzodiazepines Scrn Negative, U Oth Cocaine Metabols Negative, U Cannabinoids Screen Negative 04/18/18 17:09: Serum Osmolality 292 04/18/18 17:09: Sodium 142, Potassium 4.2, Chloride 100, Carbon Dioxide 29, Anion Gap 18, BUN 14, Creatinine 0.5 L, Est GFR ( Amer) > 60, Est GFR ( Non-Af Amer) > 60, Random Glucose 154 H, Calcium 9.3, Total Bilirubin 0.1 L, AST 34, ALT 25, Alkaline Phosphatase 53, Troponin I < 0.01, Total Protein 8.0, Albumin 4.5, Globulin 3.6, Albumin/Globulin Ratio 1.2 04/18/18 17:09: PT 11.1, INR 0.97, APTT 26.0 04/18/18 17:09: WBC 6.5, RBC 4.88, Hgb 10.9 L, Hct 33.6 L, MCV 68.9 L, MCH 22.3 L, MCHC 32.4, RDW 13.4, Plt Count 352, MPV 9.5, Gran % 45.0 L, Lymph % (Auto) 47.5 H, [place] % (Auto) 5.5, Eos % (Auto) 1.7, Baso % (Auto) 0.3, Gran # 2.94, Lymph # (Auto) 3.1, [place] # (Auto) 0.4, Eos # (Auto) 0.1, Baso # (Auto) 0.02 I have reviewed the lab results: Yes Interpretation: Abnormal lab values (mildly elevated GLUC) - RAD Interpretation Narrative RAD Interpretations (Text): 04/18/18 18:58 PROCEDURE: CT HEAD WITHOUT CONTRAST. Dictator : Tez Null MD Report Date : 04/18/2018 18:54:32 IMPRESSION: No acute intracranial abnormalities. No significant findings to account for the clinical presentation. No significant interval change compared to the prior examination(s). 04/18/18 19:27: -- Chest X-ray read and interpreted by me shows no acute disease. Slightly rotated. -- Right Shoulder X-Ray read and interpreted by me shows no dislocation. No fracture. Radiology Orders: 04/18/18 15:49 HEAD W/O CONTRAST [CT] Stat 04/18/18 15:50 CHEST PORTABLE [RAD] Stat 04/18/18 15:52 SHOULDER RIGHT [RAD] Stat Extension Course Counselor: Radiologist - EKG Interpretation EKG Interpretation (Text): 04/18/18 16:31 NSR at 70 bpm, normal axis, no ectopy, biphasic T in leads III, V2, no st changes, BORDERLINE EKG; no gross changes compare with old ekg 12/2014 Interpreted by ED Physician: Yes Type: 12 lead EKG Comparison: Similar to previous EKG - Medication Orders Current Medication Orders: Discontinued Medications Diazepam (Valium) 5 mg PO ONCE ONE PRN Reason: Protocol Stop: 04/18/18 15:55 Last Admin: 04/18/18 18:50 Dose: 5 mg Sodium Chloride (Sodium Chloride 0.9%) 500 mls @ 999 mls/hr IV .Q31M STA Stop: 04/18/18 16:23 Last Admin: 04/18/18 18:50 Dose: 999 mls/hr eMAR Start Stop Document 04/18/18 18:50 CARMINE (Rec: 04/18/18 19:01 CARMINE [id number]) Intravenous Solution Start Date 04/18/18 Start Time 18:50 End Date 04/18/18 End time 19:20 Total Infusion Time 30 Ibuprofen (Motrin Tab) 600 mg PO STAT STA Stop: 04/18/18 19:20 Last Admin: 04/18/18 19:25 Dose: 600 mg MAR Pain/Vitals Document 04/18/18 19:25 LA (Rec: 04/18/18 19:27 CARMINE [id number]) Pain Reassessment Is This A Pain ReAssessment? No Sleep Is patient sleeping during reassessment? No Presence of Pain Presence of Pain Yes Pain Scale Used Pain Scale Used Numeric Location Left, Right or Bilateral Right Pain Location Body Site Arm Description Intermittent Intensity 4 Scale Used Numeric Pain Behavior Guarding Ketorolac Tromethamine (Toradol) 30 mg IVP STAT STA Stop: 04/18/18 15:54 Last Admin: 04/18/18 18:50 Dose: 30 mg MAR Pain Assessment Document 04/18/18 18:50 LA (Rec: 04/18/18 19:00 CARMINE [id number]) Pain Reassessment Is this a pain reassessment? No Sleep Is patient sleeping during reassessment? No Presence of Pain Presence of Pain Yes Pain Scale Used Pain Scale Used Numeric Location Left, Right or Bilateral Right Pain Location Body Site Arm Description Description Intermittent Acceptable Level of Pain 7 IVP Administration Document 04/18/18 18:50 LA (Rec: 04/18/18 19:00 CARMINE [id number]) Charges for Administration # of IVP Administrations 1 Disposition/Present on Arrival - Present on Arrival Any Indicators Present on Arrival: No History of DVT/PE: No History of Uncontrolled Diabetes: No Urinary Catheter: No History of Decub. Ulcer: No History Surgical Site Infection Following: None - Disposition Have Diagnosis and Disposition been Completed?: Yes Diagnosis: Arm pain, General medical exam, Anxiety Disposition: HOME/ ROUTINE Disposition Time: 19:20 Patient Plan: Discharge Patient Problems: Current Active Problems Problem Status Onset Arm pain Acute General medical exam Acute Condition: STABLE Discharge Instructions (ExitCare): Anxiety, Adult (DC), Shoulder Pain (DC) Print Language: ANGOLAN Additional Instructions: Make sure to see your doctor in 1-2 days DRINK PLENTY OF FLUIDS take your medications as prescribed RETURN TO ED IF worse pain, cant breath, persistent vomiting, high fever >101- 102 for hours, altered behavior, slurr speech, facial changes, focal weakness ( arm/leg or both), unable to urinate, heavy/persistent bleeding, severe anxiety/ depression, passing out, chest pain, or other medical emergencies Prescriptions: diaZEpam [Valium] 5 mg PO TID PRN #10 tab PRN Reason: Muscle Spasm Ibuprofen [Motrin] 600 mg PO TID PRN #30 tab PRN Reason: Pain, Mild (1-3) Referrals: Susy Welsh MD [Primary Care Provider] - Follow up with primary [facility] [employer] [facility] [Outside] - Follow up with primary [facility] [Outside] - Follow up with primary [facility]] - Follow up with primary Forms: [employer] [facility] (Yakut)
[2018-04-18 17:16] LABS: BASO # 0.02 K/mm3 (0.0-2.0); BASO % 0.3 % (0.0-3.0); EOS # 0.1 (0.0-0.7); EOS % 1.7 % (1.5-5.0); GRAN # 2.94 (1.4-6.5); HEMOGLOBIN 10.9 g/dL (12.0-16.0); LYMPH # 3.1 (1.2-3.4); LYMPH % 47.5 % (22.0-35.0); MEAN CELL VOLUME 68.9 fl (80.0-105.0); MEAN CORPUSCULAR HEMOGLOBIN 22.3 pg (25.0-35.0); MEAN CORPUSCULAR HGB CONC 32.4 g/dl (31.0-37.0); MEAN PLATELET VOLUME 9.5 fl (7.0-11.0); MONO # 0.4 (0.1-0.6); MONO % 5.5 % (1.0-6.0); RBC 4.88 10^6/uL (3.5-6.1); RED CELL DISTRIBUTION WIDTH 13.4 % (11.5-14.5); WHITE BLOOD COUNT 6.5 10^3/ul (4.5-11.0)
[2018-04-18 17:27] LABS: ALB/GLOB RATIO 1.2 (1.1-1.8); ALBUMIN 4.5 g/dL (3.0-4.8); ALT/SGPT 25 U/L (7-56); AST/SGOT 34 U/L (14-36); BLOOD UREA NITROGEN 14 mg/dL (7-21); CALCIUM 9.3 mg/dL (8.4-10.5); GFR AFRICAN-AMERICAN > 60; GFR NON-AFRICAN AMERICAN > 60
[2018-04-18 17:36] LABS: INR 0.97 (0.93-1.08); PROTHROMBIN TIME 11.1 SECONDS (9.4-12.5)
[2018-04-18 17:38] LABS: TROPONIN I < 0.01 ng/mL
[2018-04-18 18:25] LABS: BARBITURATES, UR NEGATIVE (NEGATIVE); BENZODIAZEPINES, UR NEGATIVE (NEGATIVE); OPIATES, UR NEGATIVE (NEGATIVE); PHENCYCLIDINE, UR NEGATIVE (NEGATIVE)
--- NOTE | 2018-04-18 18:55 | CT ---
PROCEDURE: CT HEAD WITHOUT CONTRAST. HISTORY: right arm weakness/pain? COMPARISON: 04/11/2014 TECHNIQUE: Axial computed tomography images were obtained through the head/brain without intravenous contrast. Radiation dose: Total exam DLP = 830.36 mGy-cm. This CT exam was performed using one or more of the following dose reduction techniques: Automated exposure control, adjustment of the mA and/or kV according to patient size, and/or use of iterative reconstruction technique. FINDINGS: HEMORRHAGE: No intracranial hemorrhage. BRAIN: No mass effect or edema. No atrophy or chronic microvascular ischemic changes. VENTRICLES: Unremarkable. No hydrocephalus. CALVARIUM: Unremarkable. PARANASAL SINUSES: Unremarkable as visualized. No significant inflammatory changes. MASTOID AIR CELLS: Unremarkable as visualized. No inflammatory changes. OTHER FINDINGS: None. IMPRESSION: No acute intracranial abnormalities. No significant findings to account for the clinical presentation. No significant interval change compared to the prior examination(s).
[2018-04-18 21:56] VITALS: TEMP 98; O2SAT 100
[2018-04-18 21:57] VITALS: BP 150/85; PULSE 70
--- NOTE | 2018-04-19 08:10 | CARD ---
APPROVED REPORT EKG Measurement Heart [id number] <Conclusion> Normal sinus rhythm Possible Left atrial enlargement
--- NOTE | 2018-04-19 08:39 | RAD ---
HISTORY: weakness/right shoulder pain COMPARISON: No prior. FINDINGS: LUNGS: No active pulmonary disease. PLEURA: No significant pleural effusion identified, no pneumothorax apparent. CARDIOVASCULAR: Normal. OSSEOUS STRUCTURES: No significant abnormalities. VISUALIZED UPPER ABDOMEN: Normal. OTHER FINDINGS: None. IMPRESSION: No active disease. Concordant results with the preliminary interpretation rendered by the emergency department physician procedure.
--- NOTE | 2018-04-19 08:40 | RAD ---
PROCEDURE: Radiographs of the Right Shoulder HISTORY: right shoulder/pain, no trauma COMPARISON: No prior. FINDINGS: BONES: Normal. No fracture. JOINTS: Normal. Glenohumeral and acromioclavicular joints preserved. No osteoarthritis. SOFT TISSUES: Normal. OTHER FINDINGS: None. IMPRESSION: Normal radiographs of the right shoulder. Concordant results with the preliminary interpretation rendered by the emergency department physician procedure.
== END 2018-04-18 19:30 | disposition home or self-care (01) ==
LOC: ED 14:59
DX: F41.9 Anxiety disorder, unspecified (principal); M79.601 Pain in right arm; E11.9 Type 2 diabetes mellitus without complications; I10 Essential (primary) hypertension; E03.9 Hypothyroidism, unspecified
CPT/HCPCS: 70450; 71045; 73030; 80053; 80324; 80345; 80346; 80349; 80353; 80358; 80361; 82010; 83930; 83992; 84484; 85025; 85610; 85730; 93005; 96374; 99284; J1885; J7040

== ENCOUNTER 2018-07-24 11:51 | Emergency (ER) | payer MEDICAID ==
[2018-07-24 11:51] VITALS: BMI 30.9
--- NOTE | 2018-07-24 12:37 | ED PDOC ---
Arrival/HPI - General Chief Complaint: Lower Extremity Problem/Injury Time Seen by Provider: 07/24/18 12:32 Historian: Patient - History of Present Illness Narrative History of Present Illness (Text): 07/24/18 12:34 A 42 year old female, whose past medical history includes HTN, DM, HLD, and asthma, presents to the emergency department with a complaint of left foot pain s/p mechanical fall. Patient states that she fell on the floor from a bus and sustained an injury to her foot. She reports left foot pain, but denies any other injuries. The patient denies fevers, chills, headache, dizziness, sore throat, cough, chest pain, shortness of breath, dyspnea on exertion, abdominal pain, nausea, vomiting, diarrhea, neck/back pain, urinary/bowel changes or any other complaint. PMD: Dr. Merritt Time/Duration: Prior to Arrival Symptom Onset: Sudden Symptom Course: Unchanged Activities at Onset: Rest, Light Context: Street Past Medical History - Provider Review Nursing Documentation Reviewed: Yes - Past History Past History: No Previous - Infectious Disease Hx of Infectious Diseases: None - Tetanus Immunization Tetanus Immunization: Unknown - Reproductive Menopause: No - Cardiac Hx Hypertension: Yes - Pulmonary Hx Respiratory Disorders: Yes Hx Asthma: Yes - Neurological Hx Neurological Disorder: No - HEENT Hx HEENT Disorder: No - Renal Hx Kidney Stones: No - Endocrine/Metabolic Hx Diabetes Mellitus Type 1: Yes Hx Hypothyroidism: Yes - Hematological/Oncological Hx Blood Disorders: No - Integumentary Hx Dermatological Disorder: No - Musculoskeletal/Rheumatological Hx Musculoskeletal Disorders: No - Gastrointestinal Hx Gastrointestinal Disorders: No - Genitourinary/Gynecological Hx Genitourinary Disorders: No - Psychiatric Hx Psychophysiologic Disorder: No Hx Depression: No Hx Emotional Abuse: No Hx Physical Abuse: No Hx Substance Use: No - Surgical History Hx Cholecystectomy: Yes Hx Hysterectomy: Yes Hx Tubal Ligation: Yes (??) - Anesthesia Hx Anesthesia: No - Suicidal Assessment Feels Threatened In Home Enviroment: No Family/Social History - Physician Review Nursing Documentation Reviewed: Yes Family/Social History: No Known Family HX Smoking Status: Never Smoked Hx Alcohol Use: No Hx Substance Use: No Hx Substance Use Treatment: No Allergies/Home Meds Allergies/Adverse Reactions: Allergies No Known Allergies Allergy (Verified 04/18/18 15:15) per patient Home Medications: Home Meds Medication Instructions Recorded Confirmed Carvedilol [Coreg] 6.25 mg PO BID 04/18/18 04/18/18 Gabapentin [Neurontin] 600 mg PO HS 04/18/18 04/18/18 Lamotrigine [Lamictal Xr] 25 mg PO BID 04/18/18 04/18/18 Levothyroxine [Synthroid] 75 mcg PO DAILY 04/18/18 04/18/18 MetFORMIN [glucoPHAGE] 1,000 mg PO BID 04/18/18 04/18/18 Multivit/Folic Acid/I 1 tab PO DAILY 04/18/18 04/18/18 [] Review of Systems - Physician Review All systems were reviewed & negative as marked: Yes - Review of Systems Constitutional: absent: Fevers Respiratory: absent: SOB, Cough Cardiovascular: absent: Chest Pain, DAIGLE Gastrointestinal: absent: Abdominal Pain, Stool Changes, Diarrhea, Nausea, Vomiting Genitourinary Female: absent: Urine Output Changes Musculoskeletal: Other (Left Foot Pain). absent: Back Pain, Neck Pain Neurological: absent: Headache, Dizziness Physical Exam Vital Signs Reviewed: Yes Vital Signs Temp Pulse Resp BP Pulse Ox 07/24/18 12:03 97.7 F 83 20 115/89 100 07/24/18 11:58 97.7 F 83 20 115/89 100 Temperature: Afebrile Blood Pressure: Normal Pulse: Regular Respiratory Rate: Normal Appearance: Positive for: Well-Appearing, Non-Toxic, Comfortable Pain Distress: None Mental Status: Positive for: Alert and Oriented X 3 - Systems Exam Head: Present: Atraumatic, Normocephalic Pupils: Present: PERRL Extroacular Muscles: Present: EOMI Conjunctiva: Present: Normal Mouth: Present: Moist Mucous Membranes Neck: Present: Normal Range of Motion Respiratory/Chest: Present: Clear to Auscultation, Good Air Exchange. No: Respiratory Distress, Accessory Muscle Use Cardiovascular: Present: Regular Rate and Rhythm, Normal S1, S2. No: Murmurs Abdomen: No: Tenderness, Distention, Peritoneal Signs Back: Present: Normal Inspection Upper Extremity: Present: Normal Inspection. No: Cyanosis, Edema Lower Extremity: Present: Tenderness (Tenderness over the dorsum of the left foot. No tenderness of the lower leg and the medial and lateral malleoli.), Swelling (Swelling over the dorsum of the left foot. ). No: Edema Neurological: Present: GCS=15, CN II-XII Intact, Speech Normal Skin: Present: Warm, Dry, Normal Color. No: Rashes Psychiatric: Present: Alert, Oriented x 3, Normal Insight, Normal Concentration Medical Decision Making ED Course and Treatment: 07/24/18 12:43 Impression: A 42 year old female presents to the emergency department with a complaint of left foot pain s/p fall. Plan: -- Left Ankle X- Ray -- Left Foot X- Ray -- Tylenol -- Reassess and disposition Prior Visits: Notes and results from previous visits were reviewed. Progress Notes: 07/24/18 13:39 On reevaluation the patient feels better and is in no acute distress. I have discussed the results and plan with the patient, who expresses understanding. Patient given the opportunity to ask question, all questions were answered and there is agreement with the plan to discharge the patient home. Patient is stable for discharge. Patient was instructed to follow up with an Orthopedist/ Hub [facility]orer in 1-2 days or return if symptoms persist/worsen or new concerning symptoms arise. All discussion with patient through amharic clay molder with patient's permission. Patient states she has full understand and is able to make the appripriate follow up. 07/24/18 14:01 a short leg posterior splint was applied by field service technician, splint checked for integrity by myself and neurovascular intact pre and post procedure. 07/24/18 14:02 - RAD Interpretation Narrative RAD Interpretations (Text): PROCEDURE: Left Foot Radiographs. Dictator : Armand Mcfarland MD Report Date : 07/24/2018 13:25:13 IMPRESSION: Displaced fracture of the base of the 5th metatarsal PROCEDURE: Left Foot Radiographs. Dictator : Armand Mcfarland MD Report Date : 07/24/2018 13:23:30 IMPRESSION: There is a displaced fracture of the base of the left 5th metatarsal Radiology Orders: 07/24/18 12:33 FOOT LEFT 5TH DIGIT (TOE) [RAD] Stat 07/24/18 12:34 ANKLE LEFT 3 VIEWS ROUTINE [RAD] Stat - Medication Orders Current Medication Orders: Discontinued Medications Acetaminophen (Tylenol 325mg Tab) 975 mg PO STAT STA Stop: 07/24/18 12:34 Last Admin: 07/24/18 13:17 Dose: 975 mg MAR Pain/Vitals Document 07/24/18 13:17 [employer] SUPERVISOR (Rec: 07/24/18 13:18 [facility] [id number]) Pain Reassessment Is This A Pain ReAssessment? Yes - Scribe Statement The provider has reviewed the documentation as recorded by the Scribe Abimbola Faulkner Provider Scribe Attestation: All medical record entries made by the Scribe were at my direction and personally dictated by me. I have reviewed the chart and agree that the record accurately reflects my personal performance of the history, physical exam, medical decision making, and the department course for this patient. I have also personally directed, reviewed, and agree with the discharge instructions and disposition. Disposition/Present on Arrival - Present on Arrival Any Indicators Present on Arrival: No History of DVT/PE: No History of Uncontrolled Diabetes: No Urinary Catheter: No History of Decub. Ulcer: No History Surgical Site Infection Following: None - Disposition Have Diagnosis and Disposition been Completed?: Yes Diagnosis: Fracture of fifth metatarsal bone of left foot Disposition: HOME/ ROUTINE Disposition Time: 14:03 Patient Plan: Discharge Patient Problems: Current Active Problems Problem Status Onset Fracture of fifth metatarsal bone of left foot Acute Condition: STABLE Discharge Instructions (ExitCare): How to Use Crutches, Foot Fracture (DC) Print Language: GU[place] Additional Instructions: Follow up with the orthopedic or job training specialist within one week. JONAS WALTERS, thank you for letting us take care of you today. Your provider was Dr. Nikos Paniagua and you were treated for fracture of the proximal fifth metatarsal.. The emergency medical care you received today was directed at your acute symptoms. If you were prescribed any medication, please fill it and take as directed. It may take several days for your symptoms to resolve. Return to the Emergency Department if your symptoms worsen, do not improve, or if you have any other problems. Please contact your doctor or call one of the physicians/clinics you have been referred to that are listed on the Patient Visit Information form that is included in your discharge packet. Bring any paperwork you were given at discharge with you along with any medications you are taking to your follow up visit. Our treatment cannot replace ongoing medical care by a primary care provider outside of the emergency department. Thank you for allowing the [facility] team to be part of your care today. If you had an X-Ray or CT scan: A Radiologist will review the ED reading if any change in treatment is needed we will contact you. If you had a blood, urine, or wound culture: It will take several days for the results, if any change in treatment is needed we will contact you. If you had an STI test: It will take 48 hours for the results. Please call after 1 week if you have not heard back. Prescriptions: Ibuprofen [Motrin Tab] 800 mg PO TID #42 tab Referrals: [facility] [Outside] - Follow up with primary Drake Faust MD [Staff Provider] - Follow up with primary Jorge Alberto Gibbs DPM [Staff Provider] - Follow up with primary Forms: [employer] ([place]), WORK NOTE
--- NOTE | 2018-07-24 13:24 | RAD ---
Date of service: 07/24/2018 PROCEDURE: Left Foot Radiographs. HISTORY: injury, fall COMPARISON: None. FINDINGS: BONES: There is a displaced fracture of the base of the left 5th metatarsal JOINTS: Normal. SOFT TISSUES: Normal. OTHER FINDINGS: None. IMPRESSION: There is a displaced fracture of the base of the left 5th metatarsal
--- NOTE | 2018-07-24 13:26 | RAD ---
Date of service: 07/24/2018 PROCEDURE: Left Foot Radiographs. HISTORY: injury, fall COMPARISON: None. FINDINGS: BONES: There is a displaced fracture of the base of the 5th metatarsal. JOINTS: Normal. SOFT TISSUES: Normal. OTHER FINDINGS: None. IMPRESSION: Displaced fracture of the base of the 5th metatarsal
[2018-07-24 15:13] VITALS: BP 123/79; PULSE 62; RESP 18; TEMP 97.9; O2SAT 99
== END 2018-07-24 14:10 | disposition home or self-care (01) ==
LOC: ED 11:51
DX: S92.352A Displaced fracture of fifth metatarsal bone, left foot, initial encounter for closed fracture (principal); W19.XXXA Unspecified fall, initial encounter; I10 Essential (primary) hypertension; E78.5 Hyperlipidemia, unspecified; E11.9 Type 2 diabetes mellitus without complications; E03.9 Hypothyroidism, unspecified